=== PATIENT | male | born 1955 | race Caucasian/White ===

== ENCOUNTER 2017-03-12 06:50 | Inpatient (IN) | payer MEDICARE, OTHER ==
[~2017-03-12] VITALS: Ht 182.9 cm; Wt 68.5 kg
[2017-03-12] VITALS (10 sets, daily range): BP systolic 95–119; BP diastolic 53–63
[2017-03-12] MEDS ORDERED: AZITHROMYCIN 500 MG in IV NORMAL SALINE 250ML 250 ML IV SCH (10:00)
[2017-03-12] MEDS: HYDROmorphone 2 MG/ML VIAL IV PRN ×4 (11:15→23:45)
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
[2017-03-12] MEDS ORDERED: VANCOMYCIN 1.5 GM in IV NORMAL SALINE 500ML BAG 500 ML IV ONE (12:30)
[2017-03-12 13:03] LABS: CREATININE 0.7 mg/dL (0.7-1.3); GFR 114.3
[2017-03-12] MEDS: PIPERACILLIN/TAZOBACTAM 3.375 GM in IV NORMAL SALINE 50ML 50 ML IV SCH ×3 (13:09→23:44)
[2017-03-12] MEDS: DOXYCYCLINE HYCLATE 100 MG TABLET PO SCH ×2 (13:37→20:08)
[2017-03-12] MEDS: VANCOMYCIN PER PHARMACY MC PRN (13:42)
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
[2017-03-12] MEDS: MICAFUNGIN 100 MG in IV DEXTROSE 5% 100 ML IV SCH (15:19)
[2017-03-12] MEDS: VANCOMYCIN 1 GM in IV NORMAL SALINE 250ML 250 ML IV SCH (20:08)
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
[2017-03-12 23:10] LABS: HEMATOCRIT 25.1 % (39.0-53.0); HEMOGLOBIN 8.2 g/dL (13.0-17.5)
[2017-03-12] MEDS ORDERED: ACET-704 PO (23:30)
[2017-03-12] MEDS ORDERED: ONDANSETRON PF 4 MG/2 ML VIAL. IV PRN (23:45)
[2017-03-12] MEDS: ACETAMINOPHEN/CODEINE 300/30MG TABLET. PO PRN (23:45)
--- NOTE | 2017-03-12 23:57 | CONS ---
DATE OF CONSULTATION: 03/12/2017 PATIENT'S ROOM: 201 REQUESTING PHYSICIAN: Dr. Enriquez. REASON FOR CONSULTATION: Immunosuppressed. HISTORY OF PRESENT ILLNESS: The patient is a pleasant 61-year-old gentleman who is somewhat of a poor historian, who has a history of CLL, cared for at . Apparently, he has been receiving chemotherapy from December of this year up until 03/02/2017, at which time it was discontinued according to Dr. Hubbard secondary to low ANC. States he underwent a bone marrow biopsy and his counts have since improved. He does have a Port-A-Cath in place. He states his has been ill and has been coughing for quite some time ____ qualify that. He was brought to [facility] on the 4th, low grade temperature of 99.2, that is T-max. White blood cell count was elevated at 12.5. Additionally, he was complaining of increased joint pain, particularly about his shoulders and his ankles and some ankle swelling. He seems to be improving from that standpoint after having been placed on Rocephin and azithromycin. It is reported he had a tick bite and he states it was 4 weeks ago and it has since been removed. He has now been transferred to [facility] for further care and evaluation. Currently, sitting upright in bed. He continues to cough. He does have mucus, purulent material. He also complains of some sinus drainage. He denies any active fevers. No nausea, vomiting. He is mildly constipated. No dysuria, frequency or urgency. He has no problems with his Port-A-Cath. PAST MEDICAL HISTORY: Positive for history of emphysema, history of cough, history of CLL as mentioned above. PAST SURGICAL HISTORY: Positive for a left knee arthroscopic splenectomy, right eye cataract extraction, Port-A-Cath placement, bone marrow biopsy. REVIEW OF SYSTEMS: Otherwise negative. ALLERGIES: LISTED IODINATED CONTRAST. SOCIAL HISTORY: States he is . Quit smoking in 2009. No recreational drugs. Used to work for a [employer] company. FAMILY HISTORY: His mother of esophageal cancer. Father at the age of 61 in a motor vehicle accident. MEDICATIONS: Include Rocephin, azithromycin. Other meds are available and reviewed in the chart. LABORATORY DATA: From here are currently pending, but at [facility], he had a white count of 12.5, hemoglobin 7.8, platelets 103, 91% lymphocytes. Creatinine 0.9. AST, ALT were normal. CRP was 154. Sed rate was 130. Chest x-ray had some mild bilateral peripheral interstitial prominence, may represent pulmonary edema, pneumonitis or infection. IMPRESSION: 1. Chronic lymphocytic leukemia since 2010, had been on chemo from December until 03/02/2017. 2. Severe myalgias that is better. 3. Leukocytosis. 4. Bronchitis/pneumonia with purulent sputum secretions. 5. History of splenectomy. 6. Questionable tick bite, reports 3 weeks ago, but he is a very poor historian. RECOMMENDATIONS: For now, discontinue the Rocephin and azithromycin. We will dose vanc, Zosyn, micafungin and doxy given his questionable tick bite. He is a poor historian; it may have been a week or two ago as he is somewhat of a poor historian. We will follow up on labs and cultures. This was discussed with Dr. Enriquez as well as Dr. Hubbard. Thank you for allowing me to participate in this patient's care. If you have any questions, please do not hesitate to contact me. ADDENDUM PHYSICAL EXAMINATION: VITAL SIGNS: Temperature was 99.1, pulse was 90, respirations 16, blood pressure 124/59. CONSTITUTIONAL: The patient is pleasant, he is cooperative, but he does seem somewhat confused. He does appear tired and cachectic. HEENT: His pupils were equal and reactive. He had normal conjunctivae. Oral cavity and pharynx were dry. No signs of any breakdown. NECK: Supple. No JVD. LUNGS: Without any wheeze or rhonchi, but he did have some cough and some sputum production. HEART: S1, S2. He had a Port-A-Cath in left chest without complications. ABDOMEN: Soft, nontender, nondistended with positive bowel sounds. EXTREMITIES: No clubbing, cyanosis, there is some trace edema. SKIN: Warm to touch without signs of rash. NEUROLOGIC: He moved all extremities. PSYCHIATRIC: Affect was somewhat flat. YAIR MAS MD DR: SIMRAN/alejandro JOB#: [id number] / [id number]
[2017-03-13] VITALS (7 sets, daily range): BP systolic 90–113; BP diastolic 49–66
[2017-03-13] MEDS: VANCOMYCIN 1 GM in IV NORMAL SALINE 250ML 250 ML IV SCH (05:00)
[2017-03-13 05:34] LABS: BASO # 0.1 x10^3/uL (0.0-0.2); BASO % 1 % (0-3); EOS % 1 % (0-3); HEMATOCRIT 24.7 % (39.0-53.0); HEMOGLOBIN 8.2 g/dL (13.0-17.5); LYMPH # 8.4 x10^3/uL (1.0-4.8); LYMPH % 88 % (24-48); MEAN CORPUSCULAR HEMOGLOBIN 34 pg (25-35); MEAN CORPUSCULAR HGB CONC 33 g/dL (31-37); MEAN CORPUSCULAR VOLUME 104 fL (79-100); MONO % 1 % (0-9); NEUT % 9 % (31-73); PLATELET COUNT 86 x10^3/uL (140-400); RED BLOOD COUNT 2.37 x10^6/uL (4.30-5.70); RED CELL DISTRIBUTION WIDTH 22.4 % (11.5-14.5); WHITE BLOOD COUNT 9.6 x10^3/uL (4.0-11.0)
[2017-03-13 05:58] LABS: ALBUMIN 2.1 g/dL (3.4-5.0); ALBUMIN/GLOBULIN RATIO 0.6 (1.0-1.7); CALCIUM 7.8 mg/dL (8.5-10.1); CREATININE 0.8 mg/dL (0.7-1.3); TOTAL BILIRUBIN 0.4 mg/dL (0.2-1.0); TOTAL PROTEIN 5.4 g/dL (6.4-8.2)
[2017-03-13] MEDS: PIPERACILLIN/TAZOBACTAM 3.375 GM in IV NORMAL SALINE 50ML 50 ML IV SCH ×4 (06:15→23:30)
[2017-03-13 07:03] LABS: % EOS 2 % (0-5); ANISOCYTOSIS MOD; PLT ESTIMATE DECREASED (ADEQUATE)
[2017-03-13 07:04] LABS: SMUDGE CELLS PRESENT
[2017-03-13] MEDS: ACETAMINOPHEN/CODEINE 300/30MG TABLET. PO PRN ×3 (08:14→20:44)
[2017-03-13] MEDS: DOXYCYCLINE HYCLATE 100 MG TABLET PO SCH ×2 (08:14→20:41)
[2017-03-13] MEDS: POLYETHYLENE GLYCOL 3350 17 GM PACKET. PO SCH (11:08)
[2017-03-13] MEDS: DOCUSATE SODIUM 100 MG CAPSULE. PO SCH ×2 (11:08→20:41)
--- NOTE | 2017-03-13 11:56 | PDOC ---
Infectious Disease Note Subjective Subjective + abdominal discomfort, feeling a little better this morning Ate a full breakfast No BM, + flatus. Needs to go to restroom Less couth ROS ROS GEN: Denies fevers, chills, sweats CV: Denies chest pain RESP: Denies shortness of air, cough GI: Denies n/v Vital Sign Vital Signs Vital Signs Date Time Temp Pulse Resp B/P (MAP) Pulse Ox O2 Delivery O2 Flow Rate FiO2 03/13/17 11:00 98.0 81 18 90/49 (63) 97 Nasal Cannula 2.0 98.0 Physical Exam PHYSICAL EXAM GENERAL: Propped up in bed, NAD HEENT: Oral cavity dry NECK: Supple LUNGS: Clear, O2 2LNC HEART: S1and S2 ABD: Soft, mildly tender to light palpation EXT: No edema, no cyanosis NANNY/HOUSEHOLD MANAGER: Alert, 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, no focal neurologic deficit SKIN: No rash IV: ok Labs Lab Laboratory Tests Test 03/12/17 12:35 03/12/17 22:30 03/13/17 05:00 Creatinine 0.7 mg/dL (0.7-1.3) 0.8 mg/dL (0.7-1.3) Estimated GFR (Cockcroft-Gault) 114.3 98.0 Hemoglobin 8.2 g/dL (13.0-17.5) 8.2 g/dL (13.0-17.5) Hematocrit 25.1 % (39.0-53.0) 24.7 % (39.0-53.0) White Blood Count 9.6 x10^3/uL (4.0-11.0) Red Blood Count 2.37 x10^6/uL (4.30-5.70) Mean Corpuscular Volume 104 fL (79-100) Mean Corpuscular Hemoglobin 34 pg (25-35) Mean Corpuscular Hemoglobin Concent 33 g/dL (31-37) Red Cell Distribution Width 22.4 % (11.5-14.5) Platelet Count 86 x10^3/uL (140-400) Neutrophils (%) (Auto) 9 % (31-73) Lymphocytes (%) (Auto) 88 % (24-48) Monocytes (%) (Auto) 1 % (0-9) Eosinophils (%) (Auto) 1 % (0-3) Basophils (%) (Auto) 1 % (0-3) Neutrophils # (Auto) 0.9 x10^3uL (1.8-7.7) Lymphocytes # (Auto) 8.4 x10^3/uL (1.0-4.8) Monocytes # (Auto) 0.1 x10^3/uL (0.0-1.1) Eosinophils # (Auto) 0.1 x10^3/uL (0.0-0.7) Basophils # (Auto) 0.1 x10^3/uL (0.0-0.2) Segmented Neutrophils % 3 % (35-66) Band Neutrophils % 3 % (0-9) Lymphocytes % 92 % (24-48) Eosinophils % 2 % (0-5) Smudge Cells Present Platelet Estimate Decreased (ADEQUATE) Anisocytosis Mod Macrocytosis Slight Sodium Level 137 mmol/L (136-145) Potassium Level 4.0 mmol/L (3.5-5.1) Chloride Level 101 mmol/L (98-107) Carbon Dioxide Level 32 mmol/L (21-32) Anion Gap 4 (6-14) Blood Urea Nitrogen 16 mg/dL (8-26) BUN/Creatinine Ratio 20 (6-20) Glucose Level 104 mg/dL (70-99) Calcium Level 7.8 mg/dL (8.5-10.1) Total Bilirubin 0.4 mg/dL (0.2-1.0) Aspartate Amino Transf (AST/SGOT) 29 U/L (15-37) Alanine Aminotransferase (ALT/SGPT) 13 U/L (16-63) Alkaline Phosphatase 85 U/L (46-116) Lactate Dehydrogenase 486 U/L (85-227) Total Protein 5.4 g/dL (6.4-8.2) Albumin 2.1 g/dL (3.4-5.0) Albumin/Globulin Ratio 0.6 (1.0-1.7) Objective Assessment CLL since 2010 last chemo 12/2016March 02 Severe myalgias - better Leukocytosis - better ? Bronchitis/Pneumonia with purulent sputum production H/o Splenectomy ? Tick bite reports 4 weeks ago but poor historian Plan Plan of Care Vanc/Zosyn/Micafungin/Doxy F/u am lab Supportive care Attending Co-Sign Attending Co-Sign The patient was seen and interviewed as well as examined at the bedside. The chart was reviewed. The case was discussed. Agree with the plan of care. TRISTON PECK APRN Mar 13, 2017 11:56 YAIR MAS MD Mar 13, 2017 14:04
[2017-03-13] MEDS: VANCOMYCIN PER PHARMACY MC PRN ×2 (14:06→14:08)
--- NOTE | 2017-03-13 14:23 | PN ---
DATE: SUBJECTIVE: Followup CLL and cytopenia. The patient reported feeling better this morning and he still has some hip discomfort as well as some abdominal discomfort, but shoulder pain and ankle pain are both improved. He is also coughing less. He has not had bowel movements now for the third day. Dr. Godinez saw the patient yesterday, and he is currently on vancomycin, Zosyn as well as micafungin. He also received his 1 unit of packed red cells uneventfully yesterday. The patient examination this morning shows a more relaxed and comfortable appearing gentleman. He is coughing far less than yesterday. OBJECTIVE: VITAL SIGNS: Temperature 98.1, pulse 77, respiratory rate 18, blood pressure 113/62, satting 96% on 2 liters of oxygen by nasal cannula. HEENT: Oropharynx shows no mucosal lesions. CHEST: Clear, he is able to sit up for me without difficulty or discomfort, in sharp contrast to yesterday. ABDOMEN: Soft, nontender to gentle palpation, no palpable masses. EXTREMITIES: No pitting edema in any extremity, although the ankles do look slightly prominent still. LABORATORY STUDIES: This morning shows hemoglobin of 8.2 following packed red cell transfusion yesterday. Total white count 9.6, ANC of 0.9, with 3% segmented neutrophils, 3% bands, 92% lymphocytes. Platelet count is 86. ASSESSMENT AND PLAN: 1. Chronic lymphocytic leukemia with neutropenia, anemia and mild thrombocytopenia, treatment held due initially to neutropenia, now also active infection/pneumonia. 2. Pneumonia, Infectious Disease has seen the patient, on broad-spectrum antimicrobials including antifungal outlined as above. 3. Generalized aches mostly in joints, improved. 4. Mild abdominal discomfort, suspect this to be related to constipation. He does have a p.r.n. bowel regimen. Dr. Portia Smith will return tomorrow. We will check CBC daily. Monitor counts closely. LAYLA LEGER MD DR: KRISSY/alejandro JOB#: [id number] / [id number]
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
[2017-03-13] MEDS: VANCOMYCIN 1.25 GM in IV NORMAL SALINE 250ML 250 ML IV SCH ×2 (14:34→23:30)
[2017-03-13] MEDS: MICAFUNGIN 100 MG in IV DEXTROSE 5% 100 ML IV SCH (14:35)
[2017-03-13] MEDS: HYDROmorphone 2 MG/ML VIAL IV PRN ×3 (17:52→23:34)
[2017-03-14 03:00] VITALS: BP 99/66
--- NOTE | 2017-03-14 03:37 | ACF ---
Admission Forms Criteria PNEUMONIA, COMMUNITY ACQUIRED Clinical Indications for Admission to Inpatient Care (Place 'X' for any and all applicable criteria): Admission to inpatient status for two midnights or more is indicated for ANY ONE of the following (1)(2)(3): [ ]I. Hypoxia [ ]II. Hemodynamic instability [ ]III. Altered mental status that is severe or persistent [ ]IV. Dehydration that is severe or persistent. [ ]V. Bacteremia [ ]. Moderate-risk or high-risk category patients (Pneumonia Severity Index ( PSI) class IV or V, or CURB-65 score of 3 or greater). [ ]VII. Intermediate-risk category patients (e.g., PSI class III or CURB-65 score 2) who do not improve with outpatient and observation care treatment [ ]VIII. Outpatient treatment failure as indicated by 1 or more of the following(9): [ ]a) Failure to respond to antibiotic (eg, resistant organism) [ ]b) Clinically significant adverse effects from medication (eg, vomiting) [ ]c) Complications of pneumonia (eg, empyema, bacteremia) [ ]d) Significant worsening of comorbid cond necessitating inpatient care (eg, chronic heart failure) [X ]IX. Appropriate diagnostic testing and treatment unavailable in outpatient or recovery facility (eg, testing or infection control measures unavailable) [ ]X. Respiratory finding (eg. tachypnea) that do not respond to outpatient observation care treatment [ ]XI. Complicated pleural effusions (eg, emphysema, exudative, loculated) [ ]XII. Immunocompromised patients (e.g., AIDS, chronic steroid use) at moderate or high risk based on clinical evaluation. Extended stay beyond goal length of stay may be needed for (20) [ ]a) Unclear diagnosis [ ]b) Pleural disease [ ]c) Severe pneumonia or treatment failure [ ]d) Respiratory failure [ ]e) New onset hyponatremia (serum Na concentration less than 135 mEq/L(mmol/ L) [ ]f) Clinically significant comorbid illness (eg, heart failure, atrial fibrillation with rapid heart rate, alcohol withdrawal, renal insufficiency)(34)(35) [ ]g) Comorbid acute exacerbation of COPD(36) [ ]h) Concomitant diagnosis of malignancy [ ]i) Concomitant altered mental status [ ]j) Culture-identified Gram-negative or antibiotic-resistant organism (eg, Pseudomonas, methicillin-resistant Staphylococcus aureus MRSA)(30) [ ]k) Healthcare-associated pneumonia (36) The original [facility] [employer] [facility] content created by [facility] has been revised. The portions of the content which have been revised are identified through the use of italic text, and [facility] has neither reviewed nor approved the modified material. All other unmodified content is copyright [facility]. Please see references footnoted in the original [facility] edition 2015 Admission Criteria Met?: Yes DANNY FALLON Mar 14, 2017 03:37
[2017-03-14 03:49] LABS: BASO % 0 % (0-3); EOS % 2 % (0-3); HEMOGLOBIN 8.4 g/dL (13.0-17.5); LYMPH % 84 % (24-48); MEAN CORPUSCULAR HEMOGLOBIN 34 pg (25-35); MEAN CORPUSCULAR HGB CONC 32 g/dL (31-37); MEAN CORPUSCULAR VOLUME 105 fL (79-100); MONO % 2 % (0-9); NEUT % 12 % (31-73); PLATELET COUNT 80 x10^3/uL (140-400); RED BLOOD COUNT 2.49 x10^6/uL (4.30-5.70); RED CELL DISTRIBUTION WIDTH 21.9 % (11.5-14.5); WHITE BLOOD COUNT 8.4 x10^3/uL (4.0-11.0)
[2017-03-14 04:12] LABS: C-REACTIVE PROTEIN 148.6 mg/L (0-3.3); CREATININE 0.8 mg/dL (0.7-1.3); POTASSIUM 3.5 mmol/L (3.5-5.1)
[2017-03-14] MEDS: HYDROmorphone 2 MG/ML VIAL IV PRN ×2 (05:53→09:27)
[2017-03-14] MEDS: ACETAMINOPHEN/CODEINE 300/30MG TABLET. PO PRN (05:53)
[2017-03-14] MEDS: PIPERACILLIN/TAZOBACTAM 3.375 GM in IV NORMAL SALINE 50ML 50 ML IV SCH (05:54)
[2017-03-14] MEDS: VANCOMYCIN 1.25 GM in IV NORMAL SALINE 250ML 250 ML IV SCH (05:54)
[2017-03-14 07:00] VITALS: BP 100/59
[2017-03-14] MEDS: POLYETHYLENE GLYCOL 3350 17 GM PACKET. PO SCH (09:21)
[2017-03-14] MEDS: predniSONE 10 MG TABLET PO SCH (09:22)
[2017-03-14] MEDS: DOCUSATE SODIUM 100 MG CAPSULE. PO SCH ×2 (09:22→21:37)
[2017-03-14] MEDS: DOXYCYCLINE HYCLATE 100 MG TABLET PO SCH ×2 (09:22→21:36)
--- NOTE | 2017-03-14 09:45 | PDOC ---
Subjective: Subjective: Onc f/u- CLL A lot of itching this AM No rash Pt upset he was not given PCN before admit, continues to speak on that Objective: Vital Signs: Vital Signs Date Time Temp Pulse Resp B/P (MAP) Pulse Ox O2 Delivery O2 Flow Rate FiO2 03/14/17 09:27 Nasal Cannula 2.0 03/14/17 07:00 97.5 87 19 100/59 (73) 95 97.5 Physical Exam: Extremities: No edema General: Alert, No acute distress Lungs: Other (no respiratory distress) Psych/Mental Status: Mood NL Skin: No rashes Labs/Imaging: CBC stable ANC 0.9 Assessment/Plan A/P: 1. Chronic lymphocytic leukemia with neutropenia, anemia and mild thrombocytopenia- Ibrutinib on hold until he is off treatment for his PNA. Will f/u with Dr. Lopez; I will alert Dr. Lopez as well. 2. Pneumonia- On broad-spectrum antimicrobials per ID. 3. Itching. No rashes seen, but pt itching with butterknife his whole body this AM. Monitor, lotions, d/w nurse. Will follow peripherally; please call w/ additional questions. LI MTZ DO Mar 14, 2017 09:45
--- NOTE | 2017-03-14 10:19 | PDOC ---
Infectious Disease Note Subjective Subjective + abdominal discomfort but better. + Flatus no Bm yet Ate a full breakfast Less couth ROS ROS GEN: Denies fevers, chills, sweats HEENT: Denies blurred vision, sore throat CV: Denies chest pain RESP: Denies shortness of air, cough GI: Denies n/v/d NEURO: Denies confusion, dizziness MSK: Denies weakness, joint pain/swelling Vital Sign Vital Signs Vital Signs Date Time Temp Pulse Resp B/P (MAP) Pulse Ox O2 Delivery O2 Flow Rate FiO2 03/14/17 09:27 Nasal Cannula 2.0 03/14/17 07:00 97.5 87 19 100/59 (73) 95 97.5 Physical Exam PHYSICAL EXAM GENERAL: Propped up in bed, NAD HEENT: Oral cavity dry, dentures NECK: Supple LUNGS: Clear, O2 2LNC HEART: S1and S2 ABD: Soft, mildly tender to light palpation EXT: No edema, no cyanosis 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, 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, no focal neurologic deficit SKIN: No rash IV: ok Labs Lab Laboratory Tests Test 03/13/17 13:15 03/14/17 02:40 Vancomycin Level Trough 12.8 mcg/mL (10.0-20.0) Vancomycin Last Dose Date 03/13/17 Vancomycin Last Dose Time 0500 White Blood Count 8.4 x10^3/uL (4.0-11.0) Red Blood Count 2.49 x10^6/uL (4.30-5.70) Hemoglobin 8.4 g/dL (13.0-17.5) Hematocrit 26.0 % (39.0-53.0) Mean Corpuscular Volume 105 fL (79-100) Mean Corpuscular Hemoglobin 34 pg (25-35) Mean Corpuscular Hemoglobin Concent 32 g/dL (31-37) Red Cell Distribution Width 21.9 % (11.5-14.5) Platelet Count 80 x10^3/uL (140-400) Neutrophils (%) (Auto) 12 % (31-73) Lymphocytes (%) (Auto) 84 % (24-48) Monocytes (%) (Auto) 2 % (0-9) Eosinophils (%) (Auto) 2 % (0-3) Basophils (%) (Auto) 0 % (0-3) Neutrophils # (Auto) 1.0 x10^3uL (1.8-7.7) Lymphocytes # (Auto) 7.0 x10^3/uL (1.0-4.8) Monocytes # (Auto) 0.1 x10^3/uL (0.0-1.1) Eosinophils # (Auto) 0.2 x10^3/uL (0.0-0.7) Basophils # (Auto) 0.0 x10^3/uL (0.0-0.2) Erythrocyte Sedimentation Rate 120 (0-15) Sodium Level 141 mmol/L (136-145) Potassium Level 3.5 mmol/L (3.5-5.1) Chloride Level 104 mmol/L (98-107) Carbon Dioxide Level 34 mmol/L (21-32) Anion Gap 3 (6-14) Blood Urea Nitrogen 12 mg/dL (8-26) Creatinine 0.8 mg/dL (0.7-1.3) Estimated GFR (Cockcroft-Gault) 98.0 Glucose Level 97 mg/dL (70-99) Calcium Level 8.0 mg/dL (8.5-10.1) C-Reactive Protein, Quantitative 148.6 mg/L (0-3.3) Objective Assessment CLL since 2010 last chemo 12/2016March 02 Severe myalgias - better Leukocytosis - better ? Bronchitis/Pneumonia with purulent sputum production H/o Splenectomy ? Tick bite reports 4 weeks ago but poor historian Plan Plan of Care D/c Vanc/Zosyn/Micafungin Change to Augmentin Cont Doxy F/u am lab Supportive care YAIR MAS MD Mar 14, 2017 10:19
[2017-03-14] MEDS: AMOXICILLIN/K CLAV 875/125MG TABLET. PO SCH ×2 (11:33→21:36)
[2017-03-14 11:44] VITALS: BP 109/62
--- NOTE | 2017-03-14 14:33 | CONS ---
DATE OF CONSULTATION: 03/14/2017 REQUESTING PHYSICIAN: Dr. Enriquez. REASON FOR CONSULTATION: Multiple joint pain. HISTORY OF PRESENT ILLNESS: The patient is a 61-year-old male with chronic lymphatic leukemia and other treatment with chemotherapy, had a tick bite about a month ago. Then, after 10 days when he removed the tick, he felt numbness in the shoulder and the hip, which was resolved. Then, about a week later, he started to have the pain. From the last 10 days, he had a severe pain in the shoulder and hip area, which was achy, constant, exacerbating with activity and at that point, he had difficulty to do any activity with the shoulders or to stand up and walk. So, he came to the hospital and he has been hospitalized. So for further evaluation and management, rheumatology consultation has been requested. He also had some pain in the ankle, but more swelling, which is resolved. Now, he still complains of some pain in the shoulders and the hip, but denies any other joint pain. PAST MEDICAL HISTORY: Emphysema, CLL. PAST SURGICAL HISTORY: Left knee arthroscopy, splenectomy, Port-A-Cath placement, right eye cataract surgery, and recent bone marrow biopsy. SOCIAL HISTORY: He is . He smoked 1 pack per day for more than 20 years and quit in 2009. FAMILY HISTORY: Negative for any autoimmune disease in the family. ALLERGIES: IODINATED CONTRAST MEDIA. MEDICATIONS: I have reviewed the list of medication as per chart. REVIEW OF SYSTEMS: Positive for the cough, abdominal pain due to the constipation and all other systems are reviewed and negative. PHYSICAL EXAMINATION: GENERAL: He is awake, alert, 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, not in acute distress. VITAL SIGNS: His vitals revealed pulse 77, temperature 98, respirations at 20 and blood pressure 99/66. SKIN: He does not have any rash. HEENT: Normocephalic, atraumatic. Head: No oral ulcerations. NECK: Supple. HEART: S1, S2 regular. LUNGS: Clear to auscultation. EXTREMITIES: No pitting edema. MUSCULOSKELETAL: Examination revealed tenderness on the shoulder area and hip area with very mild limited range of motion on the left shoulder. He does not have any tenderness on any other joint or any synovitis. He does have the chronic deformity of the right fourth and fifth finger due to the sports related injury. LABORATORY DATA: I have reviewed his laboratory test results and his WBC is 8.4, hemoglobin 8.4, ESR 120, C-reactive protein 148, and creatinine 0.8. ASSESSMENT: 1. Polyarthralgia. 2. Pneumonia. 3. Elevated sedimentation rate. 4. Elevated CRP. 5. Polymyalgia rheumatica. 6. Chronic lymphatic leukemia. Although, he had arthralgia, elevated sed rate, and CRP, his current clinical presentation is not quite suggestive of inflammatory arthritis. Since he is already on the chemotherapy for his cancer, there is very unlikely any chance of developing inflammatory autoimmune arthritis like rheumatoid, systemic lupus, etc. It is possible he could have polymyalgia rheumatica. His elevated sed rate and CRP could be due to polymyalgia rheumatica or due to his underlying infection or malignancy. So, I will give him a trial of prednisone 10 mg every morning and requested further laboratory tests as per order. He may continue any analgesic on an as needed basis. I suggest follow up in clinic in about 2 weeks after the discharge. Thank you for allowing me to participate in his care and if you have any questions, please do not hesitate to contact me. CARLA JACOBS MD DR: KULDEEP/alejandro JOB#: [id number] / [id number]
[2017-03-14 15:26] VITALS: BP 108/65
[2017-03-14] MEDS: oxyCODONE/APAP 5/325 1 TAB TABLET PO PRN (17:24)
[2017-03-14 19:15] VITALS: BP 101/59
[2017-03-14 21:12] LABS: RHEUMATOID FACTOR 11.5 IU/mL (0.0-13.9)
[2017-03-14 23:10] VITALS: BP 103/58
--- NOTE | 2017-03-14 23:18 | PN ---
DATE: 03/14/2017 SUBJECTIVE: The patient is sitting comfortably in his chair, eating his lunch comfortably in no apparent distress. He apparently walked with a walker. His shoulder and hip pains are much improved. PHYSICAL EXAMINATION: GENERAL: When I examined him, he looked pale, but no jaundice, cyanosis, or thyromegaly. No jugular venous distention. No limb edema. VITAL SIGNS: Heart rate 75, blood pressure was 109/62, temperature was 97.6, respiratory rate was 19 and oxygen saturation was 97% on 2 liters oxygen by nasal cannula. HEAD, EYES, EARS, NOSE AND THROAT: Showed normocephalic, atraumatic. NECK: Supple. HEART: Showed normal first and second heart sounds with no gallop, rub or murmur. CHEST: Clear to auscultation. No crepitation or rhonchi. ABDOMEN: Distended, soft, nontender. No guarding or rigidity. No organomegaly. Hernial orifices intact. Bowel sounds normal. NEUROLOGIC: He was awake, alert, responding appropriately. Cranial nerves intact. He moves extremities without difficulty. He walks with a walker. His intake is 2360, output was 975. LABORATORY DATA: As of this morning showed a white cell count of 8400, hemoglobin 8.4, hematocrit 26, MCV 105 and platelet count of 80,000. His chemistry showed a serum sodium 141, potassium 3.5, chloride 104, bicarbonate 34, anion gap of 3, BUN 12, creatinine 0.8, estimated GFR was 98 mL per minute. His glucose was 97. Calcium was 8. ASSESSMENT: 1. Chronic ____ leukemia, on chemotherapy since 2010. His the most recent chemotherapy on 03/02/2017. 2. Pneumonia with purulent sputum. 3. History of splenectomy. 4. Severe arthralgia and myalgias are much improved, leukocytosis improved, history of tick bite about 4 weeks ago. PLAN: To continue with Augmentin as well as doxycycline, repeat all his lab work, continue with physical and occupational therapy. I will switch him to Percocet to minimize the use of hydromorphone and hopefully if he is feeling better we can discharge him back to finish treatment as an outpatient. LUZ DUMONT MD DR: GANGA/alejandro JOB#: [id number] / [id number]
[2017-03-15] VITALS (7 sets, daily range): BP systolic 104–130; BP diastolic 54–66
[2017-03-15] MEDS: ACETAMINOPHEN/CODEINE 300/30MG TABLET. PO PRN ×3 (00:52→21:15)
[2017-03-15 03:59] LABS: BASO % 0 % (0-3); EOS % 2 % (0-3); HEMATOCRIT 23.7 % (39.0-53.0); HEMOGLOBIN 7.7 g/dL (13.0-17.5); LYMPH # 5.7 x10^3/uL (1.0-4.8); LYMPH % 81 % (24-48); MEAN CORPUSCULAR HEMOGLOBIN 34 pg (25-35); MEAN CORPUSCULAR HGB CONC 33 g/dL (31-37); MEAN CORPUSCULAR VOLUME 104 fL (79-100); MONO % 1 % (0-9); NEUT % 17 % (31-73); PLATELET COUNT 74 x10^3/uL (140-400); RED BLOOD COUNT 2.27 x10^6/uL (4.30-5.70); RED CELL DISTRIBUTION WIDTH 21.4 % (11.5-14.5); WHITE BLOOD COUNT 7.1 x10^3/uL (4.0-11.0)
[2017-03-15 04:19] LABS: ALBUMIN/GLOBULIN RATIO 0.6 (1.0-1.7); CALCIUM 7.9 mg/dL (8.5-10.1); CREATININE 0.6 mg/dL (0.7-1.3); GFR 136.5; POTASSIUM 3.7 mmol/L (3.5-5.1); TOTAL BILIRUBIN 0.2 mg/dL (0.2-1.0); TOTAL PROTEIN 5.3 g/dL (6.4-8.2)
--- NOTE | 2017-03-15 09:39 | PDOC ---
Infectious Disease Note Subjective Subjective + abdominal discomfort but better. + Flatus no Bm yet Ate a full breakfast ROS ROS GEN: Denies fevers, chills, sweats HEENT: Denies blurred vision, sore throat CV: Denies chest pain RESP: Denies shortness of air, cough GI: Denies n/v/d NEURO: Denies confusion, dizziness MSK: Denies weakness, joint pain/swelling Vital Sign Vital Signs Vital Signs Date Time Temp Pulse Resp B/P (MAP) Pulse Ox O2 Delivery O2 Flow Rate FiO2 03/15/17 07:00 97.9 81 18 108/58 (75) 94 Nasal Cannula 2.0 97.9 Physical Exam PHYSICAL EXAM GENERAL: Propped up in bed, NAD HEENT: Oral cavity dry, dentures NECK: Supple LUNGS: Clear, O2 2LNC HEART: S1and S2 ABD: Soft, mildly tender to light palpation EXT: No edema, no cyanosis 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, 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, no focal neurologic deficit SKIN: No rash IV: port ok Labs Lab Laboratory Tests Test 03/15/17 03:14 03/15/17 03:15 Sodium Level 142 mmol/L (136-145) Potassium Level 3.7 mmol/L (3.5-5.1) Chloride Level 105 mmol/L (98-107) Carbon Dioxide Level 37 mmol/L (21-32) Anion Gap 0 (6-14) Blood Urea Nitrogen 11 mg/dL (8-26) Creatinine 0.6 mg/dL (0.7-1.3) Estimated GFR (Cockcroft-Gault) 136.5 BUN/Creatinine Ratio 18 (6-20) Glucose Level 94 mg/dL (70-99) Calcium Level 7.9 mg/dL (8.5-10.1) Total Bilirubin 0.2 mg/dL (0.2-1.0) Aspartate Amino Transf (AST/SGOT) 35 U/L (15-37) Alanine Aminotransferase (ALT/SGPT) 20 U/L (16-63) Alkaline Phosphatase 106 U/L (46-116) Total Protein 5.3 g/dL (6.4-8.2) Albumin 2.0 g/dL (3.4-5.0) Albumin/Globulin Ratio 0.6 (1.0-1.7) White Blood Count 7.1 x10^3/uL (4.0-11.0) Red Blood Count 2.27 x10^6/uL (4.30-5.70) Hemoglobin 7.7 g/dL (13.0-17.5) Hematocrit 23.7 % (39.0-53.0) Mean Corpuscular Volume 104 fL (79-100) Mean Corpuscular Hemoglobin 34 pg (25-35) Mean Corpuscular Hemoglobin Concent 33 g/dL (31-37) Red Cell Distribution Width 21.4 % (11.5-14.5) Platelet Count 74 x10^3/uL (140-400) Neutrophils (%) (Auto) 17 % (31-73) Lymphocytes (%) (Auto) 81 % (24-48) Monocytes (%) (Auto) 1 % (0-9) Eosinophils (%) (Auto) 2 % (0-3) Basophils (%) (Auto) 0 % (0-3) Neutrophils # (Auto) 1.2 x10^3uL (1.8-7.7) Lymphocytes # (Auto) 5.7 x10^3/uL (1.0-4.8) Monocytes # (Auto) 0.0 x10^3/uL (0.0-1.1) Eosinophils # (Auto) 0.1 x10^3/uL (0.0-0.7) Basophils # (Auto) 0.0 x10^3/uL (0.0-0.2) Objective Assessment notified this am of 1 of 2 + blood cult [facility] - 03/11 from [place]. D/w micro 03/14 and neg at that point CLL since 2010 last chemo 12/2016March 02 Severe myalgias - better Leukocytosis - better ? Bronchitis/Pneumonia with purulent sputum production H/o Splenectomy ? Tick bite reports 4 weeks ago but poor historian Plan Plan of Care Restart Vanc given + blood cult - hopeful contamination -will f/u Cont Augmentin/Doxy F/u am lab Supportive care YAIR MAS MD Mar 15, 2017 09:39
[2017-03-15] MEDS ORDERED: VANCOMYCIN PER PHARMACY MC PRN (09:45)
[2017-03-15] MEDS: POLYETHYLENE GLYCOL 3350 17 GM PACKET. PO SCH (10:05)
[2017-03-15] MEDS: DOXYCYCLINE HYCLATE 100 MG TABLET PO SCH ×2 (10:06→21:13)
[2017-03-15] MEDS: DOCUSATE SODIUM 100 MG CAPSULE. PO SCH ×2 (10:06→21:13)
[2017-03-15] MEDS: predniSONE 10 MG TABLET PO SCH (10:06)
[2017-03-15] MEDS: AMOXICILLIN/K CLAV 875/125MG TABLET. PO SCH ×2 (10:17→21:13)
[2017-03-15] MEDS: VANCOMYCIN 1.25 GM in IV NORMAL SALINE 250ML 250 ML IV SCH ×2 (10:18→18:52)
--- NOTE | 2017-03-15 12:09 | PDOC ---
PROGRESS NOTES Subjective Subjective Still c/o pain in hips and shoulders but better in shoulders. No joint swelling. Has difficulty to do wt bearing activity. Objective Objective Vital Signs Date Time Temp Pulse Resp B/P (MAP) Pulse Ox O2 Delivery O2 Flow Rate FiO2 03/15/17 11:20 97.6 88 18 108/57 (74) 95 Nasal Cannula 2.0 97.6 Intake and Output 03/15/17 07:00 Intake Total 1000 ml Output Total 1575 ml Balance -575 ml Intake Oral 1000 ml Output Urine Total 1575 ml # Voids 2 Physical Exam Heart: Regular rate, Normal S1, Normal S2 Extremities: No clubbing, No cyanosis, No edema, No tenderness/swelling General: Alert, Oriented X3, Cooperative, No acute distress MUSCULOSKELETAL: Other (tender shoulders with reduced ROM of left shoulder. No synovitis. ) Assessment Assessment 1. Polyarthralgia. 2. Pneumonia. 3. Elevated sedimentation rate. 4. Elevated CRP. 5. Polymyalgia rheumatica. 6. Chronic lymphatic leukemia. Plan Plan of Care Not much response from Prednisone yet. His RF is negative. Cont. empiric Prednisone for PMR. Cont. analgesic prn. Comment Review of Relevant I have reviewed the following items jojo (where applicable) has been applied. Labs Laboratory Tests Test 03/13/17 13:15 03/14/17 02:40 03/14/17 09:10 03/15/17 03:14 Vancomycin Level Trough 12.8 mcg/mL (10.0-20.0) Vancomycin Last Dose Date 03/13/17 Vancomycin Last Dose Time 0500 White Blood Count 8.4 x10^3/uL (4.0-11.0) Red Blood Count 2.49 x10^6/uL (4.30-5.70) Hemoglobin 8.4 g/dL (13.0-17.5) Hematocrit 26.0 % (39.0-53.0) Mean Corpuscular Volume 105 fL (79-100) Mean Corpuscular Hemoglobin 34 pg (25-35) Mean Corpuscular Hemoglobin Concent 32 g/dL (31-37) Red Cell Distribution Width 21.9 % (11.5-14.5) Platelet Count 80 x10^3/uL (140-400) Neutrophils (%) (Auto) 12 % (31-73) Lymphocytes (%) (Auto) 84 % (24-48) Monocytes (%) (Auto) 2 % (0-9) Eosinophils (%) (Auto) 2 % (0-3) Basophils (%) (Auto) 0 % (0-3) Neutrophils # (Auto) 1.0 x10^3uL (1.8-7.7) Lymphocytes # (Auto) 7.0 x10^3/uL (1.0-4.8) Monocytes # (Auto) 0.1 x10^3/uL (0.0-1.1) Eosinophils # (Auto) 0.2 x10^3/uL (0.0-0.7) Basophils # (Auto) 0.0 x10^3/uL (0.0-0.2) Erythrocyte Sedimentation Rate 120 (0-15) Sodium Level 141 mmol/L (136-145) 142 mmol/L (136-145) Potassium Level 3.5 mmol/L (3.5-5.1) 3.7 mmol/L (3.5-5.1) Chloride Level 104 mmol/L (98-107) 105 mmol/L (98-107) Carbon Dioxide Level 34 mmol/L (21-32) 37 mmol/L (21-32) Anion Gap 3 (6-14) 0 (6-14) Blood Urea Nitrogen 12 mg/dL (8-26) 11 mg/dL (8-26) Creatinine 0.8 mg/dL (0.7-1.3) 0.6 mg/dL (0.7-1.3) Estimated GFR (Cockcroft-Gault) 98.0 136.5 Glucose Level 97 mg/dL (70-99) 94 mg/dL (70-99) Calcium Level 8.0 mg/dL (8.5-10.1) 7.9 mg/dL (8.5-10.1) C-Reactive Protein, Quantitative 148.6 mg/L (0-3.3) Rheumatoid Factor 11.5 IU/mL (0.0-13.9) BUN/Creatinine Ratio 18 (6-20) Total Bilirubin 0.2 mg/dL (0.2-1.0) Aspartate Amino Transf (AST/SGOT) 35 U/L (15-37) Alanine Aminotransferase (ALT/SGPT) 20 U/L (16-63) Alkaline Phosphatase 106 U/L (46-116) Total Protein 5.3 g/dL (6.4-8.2) Albumin 2.0 g/dL (3.4-5.0) Albumin/Globulin Ratio 0.6 (1.0-1.7) Test 03/15/17 03:15 White Blood Count 7.1 x10^3/uL (4.0-11.0) Red Blood Count 2.27 x10^6/uL (4.30-5.70) Hemoglobin 7.7 g/dL (13.0-17.5) Hematocrit 23.7 % (39.0-53.0) Mean Corpuscular Volume 104 fL (79-100) Mean Corpuscular Hemoglobin 34 pg (25-35) Mean Corpuscular Hemoglobin Concent 33 g/dL (31-37) Red Cell Distribution Width 21.4 % (11.5-14.5) Platelet Count 74 x10^3/uL (140-400) Neutrophils (%) (Auto) 17 % (31-73) Lymphocytes (%) (Auto) 81 % (24-48) Monocytes (%) (Auto) 1 % (0-9) Eosinophils (%) (Auto) 2 % (0-3) Basophils (%) (Auto) 0 % (0-3) Neutrophils # (Auto) 1.2 x10^3uL (1.8-7.7) Lymphocytes # (Auto) 5.7 x10^3/uL (1.0-4.8) Monocytes # (Auto) 0.0 x10^3/uL (0.0-1.1) Eosinophils # (Auto) 0.1 x10^3/uL (0.0-0.7) Basophils # (Auto) 0.0 x10^3/uL (0.0-0.2) Laboratory Tests Test 03/15/17 03:14 03/15/17 03:15 Sodium Level 142 mmol/L (136-145) Potassium Level 3.7 mmol/L (3.5-5.1) Chloride Level 105 mmol/L (98-107) Carbon Dioxide Level 37 mmol/L (21-32) Anion Gap 0 (6-14) Blood Urea Nitrogen 11 mg/dL (8-26) Creatinine 0.6 mg/dL (0.7-1.3) Estimated GFR (Cockcroft-Gault) 136.5 BUN/Creatinine Ratio 18 (6-20) Glucose Level 94 mg/dL (70-99) Calcium Level 7.9 mg/dL (8.5-10.1) Total Bilirubin 0.2 mg/dL (0.2-1.0) Aspartate Amino Transf (AST/SGOT) 35 U/L (15-37) Alanine Aminotransferase (ALT/SGPT) 20 U/L (16-63) Alkaline Phosphatase 106 U/L (46-116) Total Protein 5.3 g/dL (6.4-8.2) Albumin 2.0 g/dL (3.4-5.0) Albumin/Globulin Ratio 0.6 (1.0-1.7) White Blood Count 7.1 x10^3/uL (4.0-11.0) Red Blood Count 2.27 x10^6/uL (4.30-5.70) Hemoglobin 7.7 g/dL (13.0-17.5) Hematocrit 23.7 % (39.0-53.0) Mean Corpuscular Volume 104 fL (79-100) Mean Corpuscular Hemoglobin 34 pg (25-35) Mean Corpuscular Hemoglobin Concent 33 g/dL (31-37) Red Cell Distribution Width 21.4 % (11.5-14.5) Platelet Count 74 x10^3/uL (140-400) Neutrophils (%) (Auto) 17 % (31-73) Lymphocytes (%) (Auto) 81 % (24-48) Monocytes (%) (Auto) 1 % (0-9) Eosinophils (%) (Auto) 2 % (0-3) Basophils (%) (Auto) 0 % (0-3) Neutrophils # (Auto) 1.2 x10^3uL (1.8-7.7) Lymphocytes # (Auto) 5.7 x10^3/uL (1.0-4.8) Monocytes # (Auto) 0.0 x10^3/uL (0.0-1.1) Eosinophils # (Auto) 0.1 x10^3/uL (0.0-0.7) Basophils # (Auto) 0.0 x10^3/uL (0.0-0.2) Medications Current Medications Azithromycin 500 mg/Sodium Chloride 250 ml @ 250 mls/hr Q24H IV Last administered on 03/12/17 11:16; Start 03/12/17 at 10:00; Stop 03/12/17 at 12:01; Status DC Ceftriaxone Sodium 1 gm/ Sodium Chloride 50 ml @ 100 mls/hr Q24H IV Last administered on 03/12/17 11:16; Start 03/12/17 at 10:00; Stop 03/12/17 at 12:01; Status DC Hydromorphone HCl (Dilaudid) 1 mg PRN Q3HRS PRN IV SEVERE PAIN Last administered on 03/14/17 09:27; Start 03/12/17 at 10:00 Vancomycin HCl (Vanco Per Pharmacy) 1 each PRN DAILY PRN MC SEE COMMENTS Last administered on 03/13/17 14:08; Start 03/12/17 at 12:00; Stop 03/14/17 at 10:18; Status DC Piperacillin Sod/ Tazobactam Sod 3.375 gm/Sodium Chloride 50 ml @ 100 mls/hr Q6HRS IV Last administered on 03/14/17 05:54; Start 03/12/17 at 12:30; Stop 03/14 at 10:18; Status DC Doxycycline Hyclate (Vibra-Tab) 100 mg BID PO Last administered on 03/15/17 10: 06; Start 03/12/17 at 12:30 Vancomycin HCl 1.5 gm/Sodium Chloride 500 ml @ 250 mls/hr 1X ONCE IV Last administered on 03/12/17 13:10; Start 03/12/17 at 12:30; Stop 03/12/17 at 14:29; Status DC Micafungin Sodium 100 mg/Dextrose 100 ml @ 100 mls/hr Q24H IV Last administered on 03/13/17 14:35; Start 03/12/17 at 14:00; Stop 03/14/17 at 10:18; Status DC Vancomycin HCl 1 gm/Sodium Chloride 250 ml @ 250 mls/hr Q8H IV Last administered on 03/13/17 05:00; Start 03/12/17 at 21:00; Stop 03/13/17 at 14:01; Status DC Vancomycin HCl 1 each 1X ONCE MC Last administered on 03/13/17 12:30; Start at 12:30; Stop 03/13/17 at 12:31; Status DC Acetaminophen/ Codeine Phosphate (Tylenol #3) 1 tab PRN Q4HRS PRN PO MODERATE PAIN Last administered on 03/15/17 10:08; Start 03/12/17 at 23:30 Ondansetron HCl (Zofran) 4 mg PRN Q4HRS PRN IV NAUSEA/VOMITING; Start 03/12/17 at 23:45 Docusate Sodium (Colace) 100 mg BID PO Last administered on 03/15/17 10:06; Start 03/13/17 at 11:00 Polyethylene Glycol (miraLAX PACKET) 17 gm DAILY PO Last administered on 10:05; Start 03/13/17 at 11:00 Vancomycin HCl 1.25 gm/Sodium Chloride 250 ml @ 167 mls/hr Q8H IV Last administered on 03/14/17 05:54; Start 03/13/17 at 15:00; Stop 03/14/17 at 10:18; Status DC Prednisone (Prednisone) 10 mg DAILY08 PO Last administered on 03/15/17 10:06; Start 03/14/17 at 08:00 Amoxicillin/ Clavulanate Potassium (Augmentin 875/ 125mg) 1 tab BID PO Last administered on 03/15/17 10:17; Start 03/14/17 at 11:00 Oxycodone/ Acetaminophen (Percocet 5/325) 1 tab PRN Q4HRS PRN PO PAIN Last administered on 03/14/17 17:24; Start 03/14/17 at 12:30 Vancomycin HCl (Vanco Per Pharmacy) 1 each PRN DAILY PRN MC SEE COMMENTS Last administered on 03/15/17 10:29; Start 03/15/17 at 09:45 Vancomycin HCl 1.25 gm/Sodium Chloride 250 ml @ 167 mls/hr Q8H IV Last administered on 03/15/17 10:18; Start 03/15/17 at 10:00 Vancomycin HCl 1 each 1X ONCE MC ; Start 03/16/17 at 09:30; Stop 03/16/17 at 09: 31 Active Scripts Active Reported Tylenol With Codeine #3 Tablet (Acetaminophen/Codeine Phosphate) 1 Each Tablet 1 Tab PO PRN Q4HRS PRN Vitals/I & O Vital Sign - Last 24 Hours 03/14/17 03/14/17 03/14/17 03/14/17 15:26 17:24 19:00 19:15 Temp 97.7 97.9 97.7 97.9 Pulse 79 85 Resp 20 20 20 B/P (MAP) 108/65 (79) 101/59 (73) Pulse Ox 96 95 95 O2 Delivery Nasal Cannula Nasal Cannula Nasal Cannula Nasal Cannula O2 Flow Rate 2.0 3.0 2.0 2.0 03/14/17 03/14/17 03/15/17 03/15/17 20:00 23:10 00:52 02:00 Temp 97.5 97.5 Pulse 75 Resp 18 20 18 B/P (MAP) 103/58 (73) Pulse Ox 96 96 96 O2 Delivery Nasal Cannula Nasal Cannula Nasal Cannula Nasal Cannula O2 Flow Rate 3.0 2.0 2.0 2.0 03/15/17 03/15/17 03/15/17 03/15/17 03:15 07:00 10:08 11:20 Temp 98.4 97.9 97.6 98.4 97.9 97.6 Pulse 74 81 88 Resp 18 18 18 B/P (MAP) 107/57 (74) 108/58 (75) 108/57 (74) Pulse Ox 96 94 95 O2 Delivery Nasal Cannula Nasal Cannula Nasal Cannula Nasal Cannula O2 Flow Rate 2.0 2.0 3.0 2.0 Intake and Output 03/14/17 03/14/17 03/15/17 15:00 23:00 07:00 Intake Total 700 ml 300 ml Output Total 125 ml 1450 ml Balance -125 ml 700 ml -1150 ml CARLA JACOBS MD Mar 15, 2017 12:09
[2017-03-15] MEDS ORDERED: MAGNESIUM CITRATE 296 ML SOLUTION. PO ONE (12:45)
[2017-03-15] MEDS: oxyCODONE/APAP 5/325 1 TAB TABLET PO PRN ×2 (13:33→18:53)
--- NOTE | 2017-03-15 18:14 | PN ---
DATE: 03/15/2017 SUBJECTIVE: The patient is sitting up in his chair, eating his lunch comfortably in no apparent distress. He continues to complain of constipation and also pain in both hip joints, although his mobility has much improved, has been up and about with a walker without assistance according to nursing staff. His blood culture apparently showed growth of gram positive bacteria in 1 bottle out of [address] Godinez decided to keep him on vancomycin for now. PHYSICAL EXAMINATION: GENERAL: When I examined him, he looked pale, not jaundiced, cyanosis, or thyromegaly. No jugular venous distention. No limb edema. VITAL SIGNS: Heart rate was 88, blood pressure was 108/57, temperature was 97.6, respiratory rate was 18 and oxygen saturation was 95% on 2 liters of oxygen. HEAD, EYES, EARS, NOSE AND THROAT: Showed normocephalic, atraumatic. NECK: Supple. HEART: Showed normal first and second heart sounds with no gallop, rub or murmur. CHEST: Clear to auscultation. No crepitation or rhonchi. ABDOMEN: Distended, soft, nontender. No guarding or rigidity. No organomegaly. Hernial orifices intact. Bowel sounds normal. NEUROLOGIC: He was awake, alert, responding appropriately. Cranial nerves intact. He moves extremities without difficulty, ambulates with a walker without assistance. His intake was 2360, output was 975. LABORATORY DATA: This morning showed that his white cell count was 7100, hemoglobin 7.7, hematocrit 23.7, MCV 104 and platelet count of 74,000. His chemistry showed a serum sodium of 142, potassium 3.7, chloride 105, bicarbonate 37, anion gap of 0, BUN 11, creatinine 0.6, estimated GFR was 136 mL per minute. His glucose was 94, calcium was 7.9. Total bilirubin, AST, ALT, alkaline phosphatase were normal. His total protein was 5.3, albumin 2. ASSESSMENT: 1. Chronic lymphatic leukemia, on chemotherapy since 2010. His most recent chemotherapy was on 03/02/2017, has had a bone marrow biopsy done on 03/09/2017. 2. Pneumonitis with purulent sputum for which he was treated with antibiotics and antifungals. 3. History of splenectomy. 4. Severe arthralgias, myalgia consistent with polymyalgia rheumatica. He was seen by retail seasonal specialist and is now on prednisone and has a tick bite, raising the possibility of a recent ____ Lyme arthritis for which he is on doxycycline. 5. Anemia that is normochromic normocytic with hemoglobin of 7.7, hematocrit 23.7. 6. Thrombocytopenia with platelet count down to 74,000. 7. Severe protein-calorie malnutrition with serum albumin of only 2 g/dL. PLAN: Plan is obviously to continue with IV vancomycin. Await the result of the culture and sensitivity and obviously if it is contaminant, the patient can be discharged home tomorrow. LUZ DUMONT MD DR: GANGA/alejandro JOB#: [id number] / [id number]
--- NOTE | 2017-03-15 23:00 | CONS ---
DATE OF CONSULTATION: 03/12/2017 ADDENDUM PHYSICAL EXAMINATION: VITAL SIGNS: Temperature was 99.1, pulse was 90, respirations 16, blood pressure 124/59. CONSTITUTIONAL: The patient is pleasant, he is cooperative, but he does seem somewhat confused. He does appear tired and cachectic. HEENT: His pupils were equal and reactive. He had normal conjunctivae. Oral cavity and pharynx were dry. No signs of any breakdown. NECK: Supple. No JVD. LUNGS: Without any wheeze or rhonchi, but he did have some cough and some sputum production. HEART: S1, S2. He had a Port-A-Cath in left chest without complications. ABDOMEN: Soft, nontender, nondistended with positive bowel sounds. EXTREMITIES: No clubbing, cyanosis, there is some trace edema. SKIN: Warm to touch without signs of rash. NEUROLOGIC: He moved all extremities. PSYCHIATRIC: Affect was somewhat flat. YAIR MAS MD DR: SIMRAN/alejandro JOB#: [id number] / [id number]
[2017-03-16] MEDS: VANCOMYCIN 1.25 GM in IV NORMAL SALINE 250ML 250 ML IV SCH (02:16)
[2017-03-16] MEDS: oxyCODONE/APAP 5/325 1 TAB TABLET PO PRN ×3 (02:17→13:59)
[2017-03-16 04:56] LABS: HEMATOCRIT 24.3 % (39.0-53.0); HEMOGLOBIN 7.9 g/dL (13.0-17.5); RED BLOOD COUNT 2.3 x10^6/uL (4.30-5.70); RED CELL DISTRIBUTION WIDTH 21.5 % (11.5-14.5); WHITE BLOOD COUNT 6.4 x10^3/uL (4.0-11.0)
[2017-03-16 05:22] LABS: CALCIUM 8.2 mg/dL (8.5-10.1); CREATININE 0.7 mg/dL (0.7-1.3); GFR 114.3; POTASSIUM 4.1 mmol/L (3.5-5.1)
[2017-03-16 07:00] VITALS: BP 115/68
[2017-03-16] MEDS: DOXYCYCLINE HYCLATE 100 MG TABLET PO SCH (08:41)
[2017-03-16] MEDS: DOCUSATE SODIUM 100 MG CAPSULE. PO SCH (08:42)
[2017-03-16] MEDS: AMOXICILLIN/K CLAV 875/125MG TABLET. PO SCH (08:42)
[2017-03-16] MEDS: predniSONE 10 MG TABLET PO SCH (08:42)
[2017-03-16] MEDS: POLYETHYLENE GLYCOL 3350 17 GM PACKET. PO SCH (09:10)
--- NOTE | 2017-03-16 09:50 | PDOC ---
Infectious Disease Note Subjective Subjective Better. + BM Ate a full breakfast this am Ready to go home Cough much better ROS ROS GEN: Denies fevers, chills, sweats HEENT: Denies blurred vision, sore throat CV: Denies chest pain RESP: Denies shortness of air, cough GI: Denies n/v/d NEURO: Denies confusion, dizziness MSK: Denies weakness, joint pain/swelling Vital Sign Vital Signs Vital Signs Date Time Temp Pulse Resp B/P (MAP) Pulse Ox O2 Delivery O2 Flow Rate FiO2 03/16/17 08:41 18 2 Nasal Cannula 03/16/17 08:15 2.0 03/16/17 07:00 98.0 75 115/68 (84) 98.0 Physical Exam PHYSICAL EXAM GENERAL: Propped up in bed, NAD HEENT: Oral cavity dry, dentures NECK: Supple LUNGS: Clear, O2 2LNC HEART: S1and S2 ABD: Soft, mildly tender to light palpation EXT: No edema, no cyanosis [employer]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, 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, no focal neurologic deficit SKIN: No rash IV: port ok Labs Lab Laboratory Tests Test 03/16/17 03:35 White Blood Count 6.4 x10^3/uL (4.0-11.0) Red Blood Count 2.30 x10^6/uL (4.30-5.70) Hemoglobin 7.9 g/dL (13.0-17.5) Hematocrit 24.3 % (39.0-53.0) Mean Corpuscular Volume 105 fL (79-100) Mean Corpuscular Hemoglobin 34 pg (25-35) Mean Corpuscular Hemoglobin Concent 32 g/dL (31-37) Red Cell Distribution Width 21.5 % (11.5-14.5) Platelet Count 70 x10^3/uL (140-400) Sodium Level 142 mmol/L (136-145) Potassium Level 4.1 mmol/L (3.5-5.1) Chloride Level 104 mmol/L (98-107) Carbon Dioxide Level 35 mmol/L (21-32) Anion Gap 3 (6-14) Blood Urea Nitrogen 16 mg/dL (8-26) Creatinine 0.7 mg/dL (0.7-1.3) Estimated GFR (Cockcroft-Gault) 114.3 Glucose Level 82 mg/dL (70-99) Calcium Level 8.2 mg/dL (8.5-10.1) Objective Assessment notified this am of 1 of 2 + blood cult [facility] - 03/11 from [place]. CLL since 2010 last chemo 12/2016March 02 Severe myalgias - better Leukocytosis - better ? Bronchitis/Pneumonia with purulent sputum production -much better H/o Splenectomy ? Tick bite reports 4 weeks ago but poor historian Plan Plan of Care D/c Vanc given + blood cult - with 1/2 STCN - d/w micro this am Cont Augmentin/Doxy for 5 more days ok to d/c home D/w YAIR Rutledge MD Mar 16, 2017 09:50
--- NOTE | 2017-03-16 10:31 | PDOC ---
PROGRESS NOTES Subjective Subjective pt want to go home, covering for Objective Objective Vital Signs Date Time Temp Pulse Resp B/P (MAP) Pulse Ox O2 Delivery O2 Flow Rate FiO2 03/16/17 08:41 18 2 Nasal Cannula 03/16/17 08:15 2.0 03/16/17 07:00 98.0 75 115/68 (84) 98.0 Intake and Output 03/16/17 07:00 Intake Total 1600 ml Output Total 801 ml Balance 799 ml Intake Oral 1100 ml Other 500 ml Output Urine Total 800 ml Stool Total 1 ml # Voids 5 # Bowel Movements 2 Physical Exam Heart: Regular rate, Normal S1, Normal S2 Extremities: No clubbing, No cyanosis, No edema, No tenderness/swelling General: Alert, Oriented X3, Cooperative, No acute distress Lungs: Other (no respiratory distress) MUSCULOSKELETAL: Other (tender shoulders with reduced ROM of left shoulder. No synovitis. ) Neck: Supple Neuro: Normal speech Psych/Mental Status: Mood NL Skin: No rashes Assessment Assessment Assessment spoke with ID 1 of 2 + blood cult [facility] - 03/11 from [place]. CLL since 2010 last chemo 12/2016March 02 Severe myalgias - better Leukocytosis - better ? Bronchitis/Pneumonia with purulent sputum production -much better H/o Splenectomy ? Tick bite reports 4 weeks ago but poor historian Plan Plan of Care: contamination blood c/s,d/c iv antibiotics D/c Vanc given + blood cult - with 1/2 STCN - d/w micro this am Cont Augmentin/Doxy for 5 more days d/c home today 6 mts walk f/u PCP in 1 week D/w ID Problems: Comment Review of Relevant I have reviewed the following items jojo (where applicable) has been applied. Labs Laboratory Tests Test 03/16/17 03:35 White Blood Count 6.4 x10^3/uL (4.0-11.0) Red Blood Count 2.30 x10^6/uL (4.30-5.70) Hemoglobin 7.9 g/dL (13.0-17.5) Hematocrit 24.3 % (39.0-53.0) Mean Corpuscular Volume 105 fL (79-100) Mean Corpuscular Hemoglobin 34 pg (25-35) Mean Corpuscular Hemoglobin Concent 32 g/dL (31-37) Red Cell Distribution Width 21.5 % (11.5-14.5) Platelet Count 70 x10^3/uL (140-400) Sodium Level 142 mmol/L (136-145) Potassium Level 4.1 mmol/L (3.5-5.1) Chloride Level 104 mmol/L (98-107) Carbon Dioxide Level 35 mmol/L (21-32) Anion Gap 3 (6-14) Blood Urea Nitrogen 16 mg/dL (8-26) Creatinine 0.7 mg/dL (0.7-1.3) Estimated GFR (Cockcroft-Gault) 114.3 Glucose Level 82 mg/dL (70-99) Calcium Level 8.2 mg/dL (8.5-10.1) Medications Current Medications Magnesium Citrate (Citroma) 296 ml 1X ONCE PO Last administered on 03/15/17t 13 :32; Start 03/15/17 at 12:45; Stop 03/15/17 at 12:46; Status DC Vancomycin HCl 1 each 1X ONCE MC ; Start 03/16/17 at 09:30; Stop 03/16/17 at 09: 31; Status DC Vitals/I & O Vital Sign - Last 24 Hours 03/15/17 03/15/17 03/15/17 03/15/17 11:20 13:33 15:31 16:32 Temp 97.6 98.4 98.1 97.6 98.4 98.1 Pulse 88 73 77 Resp 18 18 20 B/P (MAP) 108/57 (74) 104/54 (71) 111/65 (80) Pulse Ox 95 94 94 O2 Delivery Nasal Cannula Nasal Cannula Nasal Cannula Nasal Cannula O2 Flow Rate 2.0 3.0 2.0 03/15/17 03/15/17 03/15/17 03/15/17 18:53 19:00 20:00 21:15 Temp 98.3 98.3 Pulse 79 Resp 20 20 B/P (MAP) 108/66 (80) Pulse Ox 93 O2 Delivery Nasal Cannula Nasal Cannula Nasal Cannula Nasal Cannula O2 Flow Rate 2.0 1.5 2.0 2.0 03/15/17 03/15/17 03/16/17 03/16/17 22:04 23:00 02:17 03:11 Temp 97.6 97.6 Pulse 77 Resp 19 20 19 18 B/P (MAP) 130/60 (83) Pulse Ox 93 O2 Delivery Nasal Cannula Nasal Cannula Nasal Cannula Nasal Cannula O2 Flow Rate 2.0 1.5 2.0 2.0 03/16/17 03/16/17 03/16/17 07:00 08:15 08:41 Temp 98.0 98.0 Pulse 75 Resp 18 18 B/P (MAP) 115/68 (84) Pulse Ox 98 2 O2 Delivery Nasal Cannula Nasal Cannula Nasal Cannula O2 Flow Rate 2.5 2.0 Intake and Output 03/15/17 03/15/17 03/16/17 15:00 23:00 07:00 Intake Total 700 ml 900 ml Output Total 500 ml 301 ml Balance -500 ml 399 ml 900 ml KAREN SHOOK MD Mar 16, 2017 10:31
[2017-03-16] MEDS ORDERED: DOXY100T PO (10:37)
[2017-03-16] MEDS ORDERED: AMOX1TAB11 PO (10:37)
[2017-03-16 11:00] VITALS: BP 105/56
== END 2017-03-16 12:00 | disposition home or self-care (01) | DRG 871 ==
LOC: 2 NORTH 09:30 → 5 SOUTH 03-15 16:00
PROVIDERS: ADMIT Internal Medicine; ATTEND Internal Medicine
PROC: 30233N1 Transfusion of Nonautologous Red Blood Cells into Peripheral Vein, Percutaneous Approach (ICD-10-PCS; principal; 2017-03-12)
DX: A41.9 Sepsis, unspecified organism (principal); J18.9 Pneumonia, unspecified organism; E43 Unspecified severe protein-calorie malnutrition; C91.10 Chronic lymphocytic leukemia of B-cell type not having achieved remission; J44.0 Chronic obstructive pulmonary disease with (acute) lower respiratory infection; D80.1 Nonfamilial hypogammaglobulinemia; D64.9 Anemia, unspecified; D69.6 Thrombocytopenia, unspecified; D70.9 Neutropenia, unspecified; Z68.20 Body mass index [BMI] 20.0-20.9, adult; K59.00 Constipation, unspecified; M35.3 Polymyalgia rheumatica; Z80.0 Family history of malignant neoplasm of digestive organs; Z87.891 Personal history of nicotine dependence; Z91.041 Radiographic dye allergy status; Z90.81 Acquired absence of spleen; Z92.21 Personal history of antineoplastic chemotherapy; Z98.41 Cataract extraction status, right eye
CPT/HCPCS: 36415; 80048; 80053; 80202; 82565; 83615; 85007; 85014; 85018; 85027; 85651; 86140; 86200; 86431; 86850; 86900; 86901; 86920; 87040; 94620; J0456; J0696; J1170; J2248; J2543; J3370; J7040; J7050; J7512; P9016; 97110; 97116; 97530; 97535; J7030